=== PATIENT | male | born 1965 | race African-American/Black ===

== ENCOUNTER 2020-05-02 15:45 | Inpatient (IN) | payer OTHER ==
--- NOTE | 2020-05-01 14:19 | NUR ---
Social Work Individual Therapy: bunker worker met with patient for brief counseling to address patients aggressive and combative behavior. Patient is not cooperative with this keno writer. Patient presents to be labile and unpredictable. Patient is not comprehending with this keno writer and is not accepting the guidance. Patient is verbally abusive towards this keno writer. This keno writer was unable to have a meaningful conversation with this patient.
[~2020-05-02] VITALS: Ht 177.8 cm; Wt 83.5 kg
--- NOTE | 2020-05-02 15:45 | NUR ---
Patient is AOx4, for admission to geriatric mental health unit, pending medical clearance@this time
--- NOTE | 2020-05-02 16:29 | NUR ---
Radha lawssusy in ED - 05/02/20 at 1631 by RASHARD Patient is AOx4, for medical clearance for geriartric admision to mental hrealth unit@this time
[2020-05-02] MEDS ORDERED: OLANZAPINE IM (16:43)
[2020-05-02] MEDS ORDERED: INSU100V39 SQ ×2 (16:43)
[2020-05-02] MEDS ORDERED: FOLIC PO (16:43)
[2020-05-02] MEDS ORDERED: INSU100V7 SQ (16:43)
[2020-05-02] MEDS ORDERED: OLAN5TAB3 PO (16:43)
[2020-05-02 16:44] LABS: BASOPHILS % (AUTO) 1.3 % (0.0-2.0); EOSINOPHILS # (AUTO) 0.1 K/uL (0.0-0.7); EOSINOPHILS % (AUTO) 1.6 % (0.0-7.0); HEMATOCRIT 41.1 % (36.7-47.1); HEMOGLOBIN 13.5 g/dL (12.5-16.3); LYMPHOCYTES # (AUTO) 1.3 K/uL (20.0-40.0); LYMPHOCYTES % (AUTO) 37.4 % (20.5-51.5); MEAN CORPUSCULAR HEMOGLOBIN 27.3 uug (23.8-33.4); MEAN CORPUSCULAR HGB CONC 33 g/dL (32.5-36.3); MEAN CORPUSCULAR VOLUME 83.2 fL (73.0-96.2); MONOCYTES # (AUTO) 0.4 K/uL (2.0-10.0); MONOCYTES % (AUTO) 10.2 % (0.0-11.0); NEUTROPHILS # (AUTO) 1.7 K/uL (1.8-8.9); NEUTROPHILS % (AUTO) 49.5 % (38.5-71.5); PLATELET COUNT (AUTO) 144 K/uL (152-348); RED BLOOD CELL COUNT(AUTO) 4.94 MIL/uL (4.06-5.63); WHITE BLOOD COUNT (AUTO) 3.5 K/uL (3.6-10.2)
[2020-05-02] MEDS ORDERED: ALBU0.63 NEB (16:47)
[2020-05-02] MEDS ORDERED: ONDA4TAB11 PO (16:47)
[2020-05-02] MEDS ORDERED: QUET100T PO (16:47)
[2020-05-02] MEDS ORDERED: THIA100T13 PO (16:47)
[2020-05-02] MEDS ORDERED: LEVE500T20 PO (16:47)
[2020-05-02] MEDS ORDERED: PANT40TA4 PO (16:47)
[2020-05-02] MEDS ORDERED: CITA20TA16 PO (16:47)
[2020-05-02 16:51] LABS: CARBON DIOXIDE 30 mmol/L (21-32); CHLORIDE 105 mmol/L (98-107); GLUCOSE 146 mg/dL (74-106); UREA NITROGEN, BLOOD 16 mg/dL (7-18)
[2020-05-02 16:53] LABS: *BILIRUBIN,URIN NEGATIVE (NEGATIVE); *BLOOD, URINE NEGATIVE (NEGATIVE); *CLARITY,URINE CLEAR (CLEAR); *COLOR,URINE YELLOW (YELLOW); *KETONES,URINE NEGATIVE (NEGATIVE); LEUKOCYTE ESTERASE ,URINE NEGATIVE (NEGATIVE); NITRITE, URINE NEGATIVE (NEGATIVE); UGLUCOSE NEGATIVE (NEGATIVE)
[2020-05-02 16:56] LABS: ALANINE AMINOTRANSFERASE 113 U/L (16-63); ALKALINE PHOSPHATASE 71 U/L (50-136); ASPARTATE AMINOTRANSFERASE 69 U/L (15-37); BILIRUBIN,DIRECT 0.1 mg/dL (0.0-0.2); BILIRUBIN,TOTAL 0.2 mg/dL (0.2-1.0); TOTAL PROTEIN, SERUM 6.4 g/dL (6.4-8.2)
[2020-05-02 16:57] LABS: ACETAMINOPHEN < 2.0 ug/mL (10-30)
[2020-05-02 16:59] LABS: ETHANOL < 3 MG/DL (0-0)
[2020-05-02 17:04] LABS: *AMPHETAMINE, URINE NEGATIVE (NEGATIVE); *BARBITURATE, URINE NEGATIVE (NEGATIVE); *CANNABINOID, URINE NEGATIVE (NEGATIVE); *COCCAINE, URINE NEGATIVE (NEGATIVE); *OPIATE, URINE NEGATIVE (NEGATIVE); *PHENCYCLIDINE SCREEN,URINE NEGATIVE (NEGATIVE); WBC,URINE 0-3 /HPF (0-3)
--- NOTE | 2020-05-02 17:05 | NUR ---
Badin with juice provided until hot dinner tray is available from dietary dept/kitchen
--- NOTE | 2020-05-02 17:23 | NUR ---
Medically cleared by Dr Jimenez now. Hot dinner tray@bedside.
--- NOTE | 2020-05-02 18:18 | NUR ---
Patient is resting comfortably on gurney with eyes closed, listening to bedside radion, lights dimmed, 1:1 sitter@bedside, still waiting for an accepting MHU nurse@this time. Patient ate dinner with good appetite.
--- NOTE | 2020-05-02 18:56 | NUR ---
Patient wants more juice and crackers. Patient had hot dinner tray, sandwich & juice earlier.
--- NOTE | 2020-05-02 19:01 | NUR ---
Hands off report given to JUNG Bruner.
--- NOTE | 2020-05-02 19:14 | NUR ---
PATIENT NOTED IN ROOM PACING WAS TOLD TO GO BACK TO BED.
[2020-05-02] MEDS ORDERED: HYDROCODONE/APAP 5-325MG TABLET PO ONE (19:15)
[2020-05-02] MEDS ORDERED: HYDROCODONE/APAP 5-325MG TABLET ONE (19:23)
--- NOTE | 2020-05-02 19:25 | NUR ---
PATIENT NOTED NOT SWALLOWING PILL WAS ASKED TO OPEN HIS MOUTH STARTED BEING LOUD AND THREATENING TO STAFF SECURITY WAS CALLED TO BEDSIDE. PATIENT FINALLY OPEN HIS MOUTH STILL VERBALLY ABUSIVE AND LOUD TOWARDS STAFF.
--- NOTE | 2020-05-02 19:45 | NUR ---
SECURITY 1:1 AT BESIDE PATIENT IN BED ON THE WIRELESS PHONE.
--- NOTE | 2020-05-02 20:00 | NUR ---
Patient admitted to MHU. Oriented to the environment. Explained rules and policy. Patient is on a hold for a 5150 for DTS and DTO. Patient is under the care of Dr. Ding and Dr. Dozier. Per hold: Patient hospitalize for SI, with many plans. Pt denies HI. Pt denies AH and VH. Pt has pressured speech and flight of ideas as well. Patient was unpredictable during the interview, cooperative but easily irritated, alert oriented x 3, poor insight, poor judgement, entitled, demanding, hyperverbal, and focused on food. Some parts of the interview patient was uncooperative and hostile but redirectable. No sign or symptom of respiratory distress, breathing even, unlabored. No indication of pain or discomfort. Denies cough, sore throat, rash, diarrhea and any recent fever. Skin assessment was done. No significant finding was found. Skin intact. Valuables and belongings were checked with nursing assistance and place in proper storage.
--- NOTE | 2020-05-02 20:15 | NUR ---
Title Curator asked to take patients blood sugar. Patient refused. Patient stated "I already did that in the ER, I don't play that game around here."
[2020-05-02] MEDS ORDERED: MAG HYDROX/AL HYDROX/SIMETH 30 ML LIQUID UDC PO PRN (20:30)
[2020-05-02] MEDS ORDERED: CLONAZEPAM 0.5 MG TABLET PO PRN (20:30)
[2020-05-02] MEDS ORDERED: MAGNESIUM HYDROXIDE 30 ML LIQUID UDC PO PRN (20:30)
[2020-05-02] MEDS ORDERED: BLOOD SUGAR DIAGNOSTIC 1 EACH STRIP VI ONE (20:30)
[2020-05-02] MEDS ORDERED: ACETAMINOPHEN 325 MG TABLET PO PRN (20:30)
[2020-05-02 21:00] VITALS: BP 106/74
[2020-05-02] MEDS ORDERED: CLONAZEPAM 1 MG TABLET PO PRN (21:45)
--- NOTE | 2020-05-02 22:35 | NUR ---
Patient went to the nursing station asking for sleeping medication and something to eat. Patient stated "I got the munchies." Klonopin 1 mg PO was provided. Explained and asked patient to sign some admission papers. Patient became agitated, made threats to staff members, verbally abusive to staff, entitled, screaming, and demanding for food. Provided chocolate pudding per patient request. Left patient room with no complains. Patient threw the chocolate pudding in the hallway. Patient became verbally abusive, made threats to grady everyone in the building, demanded for pain medication, tried to split staff, and patient clenches fist threatening anyone that will come near him. Informed MD. Received new order Ativan 2mg and Olanzapine 5mg IM x 1 now. Orders noted and carried out.
[2020-05-02] MEDS ORDERED: LORAZEPAM 2 MG/1 ML VIAL IM ONE (22:45)
[2020-05-02] MEDS ORDERED: OLANZAPINE 10 MG VIAL IM ONE (22:45)
[2020-05-03 07:30] VITALS: BP 106/60
[2020-05-03 08:06] LABS: BILIRUBIN,TOTAL 0.3 mg/dL (0.2-1.0); CREATININE 0.9 mg/dL (0.6-1.3); TOTAL PROTEIN, SERUM 6.9 g/dL (6.4-8.2)
[2020-05-03] MEDS ORDERED: METFORMIN HCL 500 MG TABLET PO SCH (11:30)
[2020-05-03] MEDS: LISINOPRIL 5 MG TABLET PO SCH (11:30)
[2020-05-03] MEDS ORDERED: ALBUTEROL SULFATE 8 GM HFA.AER.AD IH PRN (12:00)
--- NOTE | 2020-05-03 12:11 | NUR ---
Social Work Initial Discharge Plan: Patient resided at [facility], however, patient is currently homeless. Per patient, he would want to be placed at a SNF. Patient does not have any family members to contact. healthcare social worker will work with the patient and the MD regarding appropriate discharge planning. healthcare social worker will form a safe and proper discharge.
--- NOTE | 2020-05-03 12:11 | NUR ---
Social Work Family Contact: Patient does not have any family members at this moment.
[2020-05-03] MEDS ORDERED: ALBUTEROL SULFATE 2.5 MG/3 ML NEBU NEB PRN (12:15)
[2020-05-03] MEDS: PANTOPRAZOLE SODIUM 40 MG TABLET.DR PO SCH (12:18)
[2020-05-03] MEDS: CLONAZEPAM 1 MG TABLET PO PRN ×2 (12:18→21:42)
[2020-05-03] MEDS: THIAMINE HCL 100 MG TABLET PO SCH (12:18)
[2020-05-03] MEDS: levETIRAcetam 500 MG TABLET PO SCH ×2 (12:18→20:34)
[2020-05-03] MEDS: FOLIC ACID 1 MG TABLET PO SCH (12:18)
[2020-05-03] MEDS: CITALOPRAM 20 MG TABLET PO SCH (12:19)
--- NOTE | 2020-05-03 13:24 | NUR ---
Social Work Note: lot worker faxed H & P psychiatric notes and laboratory to Duong from [facility] ([phone]) (F:[phone]).
[2020-05-03] MEDS: QUETIAPINE FUMARATE 200 MG TABLET PO SCH ×2 (14:31→20:34)
[2020-05-03 16:00] VITALS: BP 94/53
[2020-05-03] MEDS: METFORMIN HCL 500 MG TABLET PO SCH (17:07)
--- NOTE | 2020-05-03 18:22 | NUR ---
Left patient in bed resting, AAox3, Remains compliant with medications schedule. GI vasquez [facility] patient eating double portions, and requesting double snacks every two hours. Educated on importance of diabetic diet at this time needs reinforcement. Pt. ambulatory with steady gait. Adequate urine output. Will endorse to incoming shift for continuity of care plan.
[2020-05-03 20:00] VITALS: BP 103/71
[2020-05-03] MEDS: TEMAZEPAM 7.5 MG CAPSULE PO PRN (23:38)
--- NOTE | 2020-05-04 03:44 | NUR ---
Patient received in bed AAO x3. No acute distress and SOB was noted. No complain of pain. No behavioral issues. Denies SI. Remains demanding food and snacks most of the time. Calm and cooperative and compliant with medications. Safety measures maintained. Continue to monitor and will endorse to the oncoming nurse accordingly.
--- NOTE | 2020-05-04 06:33 | NUR ---
Patient refused to take Protonix. The medication was discarded because it already opened.
[2020-05-04] MEDS: PANTOPRAZOLE SODIUM 40 MG TABLET.DR PO SCH (06:35)
[2020-05-04 07:30] VITALS: BP 123/80
[2020-05-04] MEDS: CITALOPRAM 20 MG TABLET PO SCH (08:41)
[2020-05-04] MEDS: levETIRAcetam 500 MG TABLET PO SCH ×2 (08:41→20:57)
[2020-05-04] MEDS: THIAMINE HCL 100 MG TABLET PO SCH (08:41)
[2020-05-04] MEDS: FOLIC ACID 1 MG TABLET PO SCH (08:41)
[2020-05-04] MEDS: METFORMIN HCL 500 MG TABLET PO SCH ×2 (08:41→17:57)
[2020-05-04] MEDS: QUETIAPINE FUMARATE 200 MG TABLET PO SCH ×2 (08:43→20:57)
[2020-05-04] MEDS: LISINOPRIL 5 MG TABLET PO SCH (08:44)
--- NOTE | 2020-05-04 09:42 | NUR ---
Social Work UR Note: steamtable worker spoke with Duong from [facility] ([phone]). Auth #[id number], who authorized the stay of the patient until [id number] is requested.
[2020-05-04] MEDS: CLONAZEPAM 1 MG TABLET PO PRN ×2 (12:12→12:18)
--- NOTE | 2020-05-04 12:26 | NUR ---
Pt is agitated, demanding, raises his voice and nurses, social media assistant, security and peers. Pt demands to be transffered to a different hospital, than he insists that he will stay in this hospital as long as he wants or he will be calling [facility] with complains and report everybody. Pt demands regular diet even though he is diabetic and his A1C is 10. He demands regular food and desert, when redirected, pt became agitated and yelling, not able to calm down. Dr. Gonzales was contacted and order for Ativan 2mg and Zyprexa 5 mg IM was obtained. Given with assistance of security.
[2020-05-04] MEDS ORDERED: LORAZEPAM 2 MG/1 ML VIAL IM ONE (12:30)
[2020-05-04] MEDS ORDERED: OLANZAPINE 10 MG VIAL IM ONE (12:30)
--- NOTE | 2020-05-04 12:35 | NUR ---
Social Work UR Note: bench worker binding spoke with Duong from [facility] ([phone]). Per Duong, he will send patient's clinicals to [facility] to see if pt will be accepted to a SNF. Per Duong, he stated that patient is mobile and ambulatory and believes that pt will not be accepted.
--- NOTE | 2020-05-04 12:36 | NUR ---
Social Work Note: This technical proposal writer was having a conversation with patient to discuss discharge plan and options. This technical proposal writer explained that we would have to be patient to wait what his insurance states. This technical proposal writer explained that he might or might not be accepted to a SNF and that we would have to find options. Patient refuses to discharge to a usp, assisted living, or board and care. Patient became verbally abusive towards this technical proposal writer and was threatening stating that this technical proposal writer is racist and security was present. This technical proposal writer informed Dr. Gonzales to increase his medications and he confirmed that he did.
--- NOTE | 2020-05-04 15:21 | NUR ---
Social Work Individual Therapy: warm in worker met with patient for brief counseling to address patients aggressive and combative behavior. Patient is not cooperative with this chief writer. Patient is unable to have a meaningful conversation with this. Patient's behavior is unpredictable. Patient does not want to listen to what this chief writer. warm in worker was unable to provide support or education due to patient being verbally abusive.
[2020-05-04 15:53] VITALS: BP 106/65
[2020-05-04 20:00] VITALS: BP 110/56
[2020-05-05] MEDS: PANTOPRAZOLE SODIUM 40 MG TABLET.DR PO SCH (06:50)
[2020-05-05 07:30] VITALS: BP 99/62
[2020-05-05] MEDS: levETIRAcetam 500 MG TABLET PO SCH ×2 (08:03→20:25)
[2020-05-05] MEDS: METFORMIN HCL 500 MG TABLET PO SCH ×2 (08:03→17:02)
[2020-05-05] MEDS: CITALOPRAM 20 MG TABLET PO SCH (08:04)
[2020-05-05] MEDS: THIAMINE HCL 100 MG TABLET PO SCH (08:05)
[2020-05-05] MEDS: QUETIAPINE FUMARATE 200 MG TABLET PO SCH ×2 (08:05→20:25)
[2020-05-05] MEDS: FOLIC ACID 1 MG TABLET PO SCH (08:05)
[2020-05-05] MEDS: CLONAZEPAM 1 MG TABLET PO PRN ×2 (08:53→17:03)
[2020-05-05] MEDS: LISINOPRIL 5 MG TABLET PO SCH (08:55)
--- NOTE | 2020-05-05 14:21 | NUR ---
patient paces back and forth in the hallway constantly, searches in the food cart more food, even after providing double portion of food, snacks, and more food. patient mumbles most of the time, difficult to understand. noted standing constantly at nursing station and asking irrelevant question that does not belong to him or to his care. needs met timely, fresh water Picher provided with ice frequently, new socks provided, clean hospital clothes provided, linens are changed, very manipulative behavior, needs, attention seeking. appropriate questions answered and concerned addressed.
--- NOTE | 2020-05-05 19:49 | NUR ---
REPORT GIVEN TO NIGHT NURSE RN
[2020-05-05 21:36] VITALS: BP 110/64
[2020-05-06] MEDS: CLONAZEPAM 1 MG TABLET PO PRN ×3 (01:28→22:02)
--- NOTE | 2020-05-06 01:30 | NUR ---
PATIENT GIVEN KLONOPIN 2MG PO FOR AGITATION. WILL CONTINUE TO MONITOR AND ASSESS.
--- NOTE | 2020-05-06 02:47 | NUR ---
PATIENT ASLEEP. NO S/S OF RESP.DISTRESS NOTED. WILL CONTINUE TO MONITOR AND ASSESS.
[2020-05-06] MEDS: PANTOPRAZOLE SODIUM 40 MG TABLET.DR PO SCH (06:24)
[2020-05-06 07:30] VITALS: BP 109/80
[2020-05-06] MEDS: METFORMIN HCL 500 MG TABLET PO SCH ×2 (08:24→18:15)
[2020-05-06] MEDS: THIAMINE HCL 100 MG TABLET PO SCH (08:25)
[2020-05-06] MEDS: FOLIC ACID 1 MG TABLET PO SCH (08:25)
[2020-05-06] MEDS: QUETIAPINE FUMARATE 200 MG TABLET PO SCH ×2 (08:25→21:00)
[2020-05-06] MEDS: levETIRAcetam 500 MG TABLET PO SCH ×2 (08:25→20:59)
[2020-05-06] MEDS: CITALOPRAM 20 MG TABLET PO SCH (08:25)
[2020-05-06] MEDS: LISINOPRIL 5 MG TABLET PO SCH (08:26)
--- NOTE | 2020-05-06 12:56 | NUR ---
GPS: PT A/OX3 BUT CONFUSE AND NEEDY. PT EXHIBITED PARANOIA BEHAVIOR IN THE MORNING WHEN HIS MEDICATIONS WAS BEING ADMINISTERED. PT STATED I AM NOT TAKING IT BECAUSE IT WAS NOT OPENED IN FRONT OF ME SO I AM NOT TAKING IT! NURSE TRIED TO PERSUADE PT AND SHOWN HIM THE MED EMPTY PACKS STILL REFUSED. WASTED MEDS WITH COSIGNED AND REPLACE AND GAVE PT UN-OPEN SET. PT IS EASILY IRRITATED AND NEEDY, FREQUENTLY ASKING FOR STUFFS FROM NURSES. AT 1000 REQUESTED FOR ANTIANXIETY AND PRN WAS GIVEN. PT PACE WITHIN ROOM TO NURSING STATION. RE-DIRECT PT AND ORIENT TO REALITY. WILL CONTINUE TO MONITOR.
[2020-05-06 16:00] VITALS: BP 112/68
[2020-05-06 20:00] VITALS: BP 116/71
--- NOTE | 2020-05-06 22:55 | NUR ---
Received pt sleeping. Aroused easily to verbal stimuli. Alert and oriented x3. No acute distress noted. Denies pain/ discomfort. Pt is needy and easily irritated. Due meds given as ordered. Denies SI. Snacks given as per request. Safety measures maintained. Will continue to monitor.
[2020-05-07] MEDS: TEMAZEPAM 7.5 MG CAPSULE PO PRN ×2 (00:17→22:45)
[2020-05-07] MEDS: PANTOPRAZOLE SODIUM 40 MG TABLET.DR PO SCH (06:19)
[2020-05-07 07:30] VITALS: BP 111/76
[2020-05-07] MEDS: THIAMINE HCL 100 MG TABLET PO SCH (08:04)
[2020-05-07] MEDS: METFORMIN HCL 500 MG TABLET PO SCH ×2 (08:04→16:15)
[2020-05-07] MEDS: CLONAZEPAM 1 MG TABLET PO PRN ×2 (08:05→16:14)
[2020-05-07] MEDS: FOLIC ACID 1 MG TABLET PO SCH (08:05)
[2020-05-07] MEDS: QUETIAPINE FUMARATE 200 MG TABLET PO SCH ×2 (08:05→20:26)
[2020-05-07] MEDS: CITALOPRAM 20 MG TABLET PO SCH (08:06)
[2020-05-07] MEDS: levETIRAcetam 500 MG TABLET PO SCH ×2 (08:06→20:26)
[2020-05-07] MEDS: LISINOPRIL 5 MG TABLET PO SCH (08:06)
[2020-05-07 15:57] VITALS: BP 98/64
--- NOTE | 2020-05-07 16:45 | NUR ---
Received patient this am up at the nursing station.. again.. requesting food and requesting for staff to call the kitchen and change his food order. This type of behavior continued all day long. Constant request for things and food. Project Development Engineer set firm boundaries . Patient began to staff split in order to get what he wanted. Patient is demanding and entitled. Often very paranoid. Medication compliant with request for Klonopin PRN on the dot. Continuing to monitor for behavior escalation, increase in paranoia and psychosis.
--- NOTE | 2020-05-07 23:58 | NUR ---
aaox3 ambulatory ad ilir. VSS needs attended. Compliant with his meds. Keep on asking for food. Patient demanding and annoying. Patient receive a dose of Haldol earlier. Will monitor patient. No futher complaints presnted during the hift.
[2020-05-08] MEDS: CLONAZEPAM 1 MG TABLET PO PRN ×2 (02:44→10:20)
--- NOTE | 2020-05-08 05:46 | NUR ---
up and about. alert and oriented x 3 needs attended. due meds given as scheduled. klonopin 2 tabs given as needed. will monitor. VSS.No signs of agitation or restlessness.
[2020-05-08] MEDS: PANTOPRAZOLE SODIUM 40 MG TABLET.DR PO SCH (06:31)
[2020-05-08 07:30] VITALS: BP 109/72
[2020-05-08] MEDS: QUETIAPINE FUMARATE 200 MG TABLET PO SCH ×2 (08:06→20:18)
[2020-05-08] MEDS: METFORMIN HCL 500 MG TABLET PO SCH ×2 (08:07→18:07)
[2020-05-08] MEDS: levETIRAcetam 500 MG TABLET PO SCH ×2 (08:07→20:18)
[2020-05-08] MEDS: THIAMINE HCL 100 MG TABLET PO SCH (08:07)
[2020-05-08] MEDS: FOLIC ACID 1 MG TABLET PO SCH (08:08)
[2020-05-08] MEDS: CITALOPRAM 20 MG TABLET PO SCH (08:08)
[2020-05-08] MEDS: LISINOPRIL 5 MG TABLET PO SCH (08:09)
--- NOTE | 2020-05-08 11:53 | NUR ---
Social Work Note: This specification writer met with patient and patient presents with labile mood. Patient is unpredictable and is insisting on this specification writer to find him a SNF. Patient does not meet the criteria for a SNF per patient's insurance. Patient is insisting on staying at the hospital. Patient is needy and is unable to follow directions. Patient is also intrusive and repetitive.
--- NOTE | 2020-05-08 13:15 | NUR ---
Social Work UR Note: stage set up worker spoke with Duong from [facility] ([phone]) this ad writer sent patient's physical therapy notes, progress notes, and medication list. This ad writer informed that patient is requesting SNF, however, per Duong he stated that he would have to get in touch with patient's [facility] to see if patient will be eligible for a SNF. Per Duong, he stated that patient is ambulatory and might not meet criteria.
--- NOTE | 2020-05-08 13:37 | NUR ---
Social Work PC Hearing Notification: Patient does not have any family members at the moment to notify that patient's probable cause of hearing will be today.
[2020-05-08] MEDS ORDERED: chlorproMAZINE 50 MG/2 ML AMPUL IM ONE (14:00)
[2020-05-08] MEDS ORDERED: LORAZEPAM 2 MG/1 ML VIAL IM ONE (14:00)
--- NOTE | 2020-05-08 14:20 | NUR ---
Social Work UR Note: animal husbandry worker contacted Duong from [facility] ([phone]) and left a voicemail to contact this technical writer back.
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
--- NOTE | 2020-05-08 14:24 | NUR ---
Received patient this am standing at the nurses station ..again.. Requesting to change his meal order..again. Dietary was called to reassure the patient. As the day progressed the requests multiplied. The patient continued to be invasive, impulsive, staff slitting, unable to redirect after multiple attempts. Patient became increasingly agitated and irritable , threatening staff and patients. Taya Rubio called, Dr. Gonzales called and orders received for IM injection. Security and designer writer explained procedure with patient. No hands on needed. Tolerated well. Continuing to monitor for staff and patient safety, monitoring RR , behavior or acute distress.
--- NOTE | 2020-05-08 14:53 | NUR ---
Social Work Individual Therapy: casing worker met with patient for brief counseling to address patients aggressive and combative behavior. Patient presents with labile mood and is unpredictable. Patient is not cooperative with this creative writer. Patient continuously states that this creative writer is racist and because he is a "nigger". Patient is unable to have a meaningful conversation with this because he is verbally abusive towards this creative writer and the staff. Patient is difficult to re-direct. casing worker was unable to provide support or education to this creative writer because he is unable to listen.
--- NOTE | 2020-05-08 15:58 | NUR ---
Social Work Firearms Report: Room Service Food Service Attendant completed and submitted a [employer] firearms report for 5250 grave disability certification. A copy of report has been placed in patient chart.
--- NOTE | 2020-05-08 15:58 | NUR ---
Social Work Substance Abuse Intervention: Patient was provided with a brief substance abuse intervention and referred to the following substance abuse programs: [facility] Substance Abuse Self-helpline ([phone]); [facility] ([phone]); [facility] ([phone]); [facility] ([phone]); [facility] ([phone]); [facility] [phone]; [facility] ([phone]).
[2020-05-08] MEDS: chlorproMAZINE 25 MG TABLET PO SCH (17:00)
[2020-05-08 17:13] VITALS: BP 128/80
--- NOTE | 2020-05-08 18:01 | NUR ---
Patient received 100MG of Thorazine IM earlier in the shift. Therefore patient decided not to take the oral dose ordered at this time.
--- NOTE | 2020-05-08 19:45 | NUR ---
PATIENT ALERT ORIENTED, PATIENT HAS NO COMPLAIN OF PAIN, PATIENT HAS MULTIPLE REQUEST WANTED 3 LARGE CONTAINER OF ICE WATER, 2 CUP OF JUICES AND CRACKERS. PATIENT HAS EPISODE OF INTRUSIVE BEHAVIOR, AND EASILY GET IRRITATED WHEN NEEDS NOT MET RIGHT AWAY, CONT TO MONITOR.
[2020-05-08 20:21] VITALS: BP 126/77
[2020-05-08] MEDS: TEMAZEPAM 7.5 MG CAPSULE PO PRN (22:04)
[2020-05-09] MEDS: PANTOPRAZOLE SODIUM 40 MG TABLET.DR PO SCH (06:13)
[2020-05-09] MEDS: CLONAZEPAM 1 MG TABLET PO PRN ×3 (06:17→18:21)
--- NOTE | 2020-05-09 06:24 | NUR ---
PATIENT STILL PREOCCUPIED WITH THE LIST OF FOOD HE WANTED FROM THE KITCHEN. MR RODRIGUEZ FROM KITCHEN ALREADY ADDRESS HIS REQUEST AND ALSO HAS HIS LIST OF FOOD PATIENT WANTS ON ALL THREE MEALS. PATIENT WAS GIVEN KLONOPIN FOR ANXIETY, CONT TO MONITOR.
[2020-05-09 07:30] VITALS: BP 107/69
[2020-05-09] MEDS: METFORMIN HCL 500 MG TABLET PO SCH ×2 (09:19→18:21)
[2020-05-09] MEDS: THIAMINE HCL 100 MG TABLET PO SCH (09:20)
[2020-05-09] MEDS: levETIRAcetam 500 MG TABLET PO SCH ×2 (09:20→20:05)
[2020-05-09] MEDS: CITALOPRAM 20 MG TABLET PO SCH (09:20)
[2020-05-09] MEDS: QUETIAPINE FUMARATE 200 MG TABLET PO SCH ×2 (09:20→20:05)
[2020-05-09] MEDS: FOLIC ACID 1 MG TABLET PO SCH (09:20)
[2020-05-09] MEDS: TRAMADOL HCL 50 MG TABLET PO PRN ×2 (09:21→20:16)
[2020-05-09] MEDS: LISINOPRIL 5 MG TABLET PO SCH (09:22)
[2020-05-09] MEDS: chlorproMAZINE 25 MG TABLET PO SCH (09:22)
--- NOTE | 2020-05-09 09:34 | NUR ---
Social Work UR Note: soaking tank worker contacted Duong from [facility] ([phone]) who stated that Yahaira sample case porter from [facility] is working on finding pt a SNF ([phone]) extension: [phone].
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
--- NOTE | 2020-05-09 11:15 | NUR ---
Social Work Note: This comic book writer spoke with patient and stated that he does not meet criteria for SNF and explored options with patient. Patient refuses Board and Care and Independent Living. This comic book writer discussed longterm options.
--- NOTE | 2020-05-09 11:51 | NUR ---
Social Work Individual Therapy: food preparation worker met with patient for brief counseling to address patients aggressive and combative behavior. Patient presents with labile mood and is unpredictable. Patient is unable to have a meaningful conversation with this news writer. Patient is constantly verbally abusive towards this news writer. It is difficult to re-direct patient because he does not want to listen. food preparation worker was unable to have a discussion with patient.
[2020-05-09] MEDS: ARIPIPRAZOLE 5 MG TABLET PO SCH (13:12)
[2020-05-09 16:00] VITALS: BP 114/70
--- NOTE | 2020-05-09 23:00 | NUR ---
received to care, watching tv with peers, anxious and needy upon approach. compliant with medications and staff direction. PRN restoril was given at 2204 for insomnia. as of 0, he appears to be asleep. no distress noted.
[2020-05-10] MEDS: PANTOPRAZOLE SODIUM 40 MG TABLET.DR PO SCH (06:30)
[2020-05-10 08:35] VITALS: BP 119/78
[2020-05-10] MEDS: LISINOPRIL 5 MG TABLET PO SCH (08:35)
[2020-05-10] MEDS: METFORMIN HCL 500 MG TABLET PO SCH (08:35)
[2020-05-10] MEDS: CITALOPRAM 20 MG TABLET PO SCH (08:35)
[2020-05-10] MEDS: FOLIC ACID 1 MG TABLET PO SCH (08:35)
[2020-05-10] MEDS: QUETIAPINE FUMARATE 200 MG TABLET PO SCH (08:35)
[2020-05-10] MEDS: ARIPIPRAZOLE 5 MG TABLET PO SCH (08:35)
[2020-05-10] MEDS: levETIRAcetam 500 MG TABLET PO SCH (08:35)
[2020-05-10] MEDS: THIAMINE HCL 100 MG TABLET PO SCH (08:36)
--- NOTE | 2020-05-10 09:43 | NUR ---
Social Work Note: This music writer spoke with Joe Muñoz ([phone]) who stated that patient does not have a command and control officer.
[2020-05-10] MEDS: CLONAZEPAM 1 MG TABLET PO PRN (10:42)
[2020-05-10] MEDS: TRAMADOL HCL 50 MG TABLET PO PRN (10:46)
--- NOTE | 2020-05-10 12:02 | NUR ---
Patient is choosing to be discharged to [facility] [address] [place] [address]; ([phone]) and will discharged today. Patient will be provided with Tap Card and directions to [facility]. Patient is aware and agreeable with discharge plans. Patient is adaptive to community resources and is savvy of the system. Patient denies suicidal or homicidal ideation. Patient presents as alert and oriented x4 with irritable mood and congruent affect. He is at his baseline. Patient is referred to [address] [address] ([phone]) for outpatient psychiatric services and disaster recovery specialist consultation. production worker spoke with Vicki chain mender [address] [place] [address]; ([phone]) and will follow-up with Dr. Martin ([facility]) on May 16 at 9:30AM. Patient will follow-up with a new psychiatrist at [facility] [address] [place] [address]; ([phone]) for intake evaluation on 05/11/20 at 9:30AM. Patient was provided with a brief substance abuse intervention and referred to the following substance abuse programs: [facility] Substance Abuse Self-helpline ([phone]); [facility] ([phone]); [facility] ([phone]); [facility] ([phone]); [facility] ([phone]); [facility] [phone]; [facility] ([phone]). SW provided patient with the [phone] [facility] Correction Program list. SW provided patient with a copy of the [facility] homeless directory which provides information on locations for hot meals, sack lunches, food pantries, and showers. Patient refused to sign the homeless waiver upon discharge and this junior copywriter was present with USMAN Ramos as a witness and copy was placed in the chart.
--- NOTE | 2020-05-10 13:20 | NUR ---
Patient with order to be discharge today. Patient is choosing to be discharged to [address] [address]; ([phone]) and will discharged today. Patient will be provided with Tap Card and directions to [facility]. Discharge Instructions given to patient and verbalized Understanding. All belongings was sent with patient. Removed Wrist band. Patient was assisted by Security. patient was discharge in stable condition.
--- NOTE | 2020-05-10 23:07 | NUR ---
[employer] was down this morning. meds were given, but was unable to scan them. pt was given PRN klonopin at 0615 for anxiety, which was effective, by 0700. he was also given PRN tramadol for generalized pain at 0659. he reported good relief by 0730.
== END 2020-05-10 13:30 | disposition home or self-care (01) | DRG 885 ==
LOC: ER 15:48 → GPS 19:48
PROVIDERS: ADMIT Psychiatry & Neurology Psychiatry; ATTEND Nurse Practitioner Acute Care
DX: F25.9 Schizoaffective disorder, unspecified (principal); F14.20 Cocaine dependence, uncomplicated; D61.818 Other pancytopenia; G40.909 Epilepsy, unspecified, not intractable, without status epilepticus; Z91.14 Patient's other noncompliance with medication regimen; F17.210 Nicotine dependence, cigarettes, uncomplicated; F10.20 Alcohol dependence, uncomplicated; Y90.0 Blood alcohol level of less than 20 mg/100 ml; Z79.84 Long term (current) use of oral hypoglycemic drugs; F32.9 Major depressive disorder, single episode, unspecified; G89.4 Chronic pain syndrome; J44.9 Chronic obstructive pulmonary disease, unspecified; Z59.0 Homelessness; F41.9 Anxiety disorder, unspecified; R74.0 Nonspecific elevation of levels of transaminase and lactic acid dehydrogenase [LDH]
CPT/HCPCS: 36415; 70030-TC; 71045; 80307; 80329; 83735; 85025; 93005; A4663; G0480; G0480-TC; J2060; J2358; J3230; Q0161